=== PATIENT | female | born 1985 ===

== ENCOUNTER 2016-11-08 12:19 | Emergency (ER) | payer MEDICAID ==
[2016-11-08 12:43] VITALS: BMI 34.4
--- NOTE | 2016-11-08 13:12 | C.PDOC ---
History Of Present Illness 30 year old female presents to the ED with complaints of a painful abscess to the right perineal area for three days. Patient denies fever or other complaints at this time. Time Seen by Provider: 11/08/16 12:49 Chief Complaint (Nursing): Abnormal Skin Integrity History Per: Patient History/Exam Limitations: no limitations Onset/Duration Of Symptoms: Days (3 days ) Current Symptoms Are (Timing): Still Present Location Of Injury: Right: Perineum Quality Of Symptoms: Painful, Swollen. denies: Draining Recent travel outside of the [place]: No Past Medical History Reviewed: Historical Data, Nursing Documentation, Vital Signs Vital Signs: Last Vital Signs Temp 98.1 F 11/08/16 13:50 Pulse 85 11/08/16 13:50 Resp 14 11/08/16 13:50 BP 113/69 11/08/16 13:50 Pulse Ox 98 11/08/16 17:20 - Medical History PMH: Asthma Surgical History: (x2) Family History: States: Unknown Family Hx - Social History Hx Alcohol Use: No Hx Substance Use: No - Immunization History Hx Tetanus Toxoid Vaccination: No Hx Influenza Vaccination: No Hx Pneumococcal Vaccination: No Review Of Systems Constitutional: Negative for: Fever, Chills Cardiovascular: Negative for: Chest Pain, Palpitations Respiratory: Negative for: Cough, Shortness of Breath Gastrointestinal: Negative for: Nausea, Vomiting, Abdominal Pain Skin: Positive for: Other (abscess to right perineal area ) Physical Exam - Physical Exam Appears: Non-toxic, No Acute Distress Skin: Warm, Dry, Other (3 cm area of induration and tenderness to right perineal area with no fluctuance ) Head: Atraumatic Eye(s): bilateral: Normal Inspection, EOMI Oral Mucosa: Moist Neck: Supple Chest: Symmetrical, No Deformity Cardiovascular: Rhythm Regular, No Murmur Respiratory: Normal Breath Sounds, No Rhonchi, No Wheezing Gastrointestinal/Abdominal: Soft, No Tenderness, No Distention, No Guarding, No Rebound ED Course And Treatment O2 Sat by Pulse Oximetry: 98 (room air ) Progress Note: Patient was given Keflex and Flagyl. Patient instructed to do sitz baths and return in two days for drainage. Disposition - Disposition Disposition: HOME/ ROUTINE Disposition Time: 13:36 Condition: STABLE Additional Instructions: Follow up with PMD within 1-2 days. Return to ED if feel worse. Warm Sitz baths every 2-3 h, return to Ed in 2 days for re-evaluation and possible abscess drainage. Prescriptions: metroNIDAZOLE [Flagyl] 500 mg PO BID #20 tab Cephalexin [cephalexin] 500 mg PO Q6 #28 cap Ibuprofen [Motrin Tab] 600 mg PO Q8 #30 tab Instructions: Abscess (ED) Forms: [facility] (Serbian) - Clinical Impression Clinical Impression: Perineal abscess - Scribe Statement The provider has reviewed the documentation as recorded by the Scribbraxton Goins All medical record entries made by the Helenibbraxton were at my direction and personally dictated by me. I have reviewed the chart and agree that the record accurately reflects my personal performance of the history, physical exam, medical decision making, and the department course for this patient. I have also personally directed, reviewed, and agree with the discharge instructions and disposition.
[2016-11-08 13:51] VITALS: BP 113/69; PULSE 85; RESP 14; TEMP 98.1
[2016-11-08 13:58] VITALS: O2SAT 98
== END 2016-11-08 13:53 | disposition home or self-care (01) ==
LOC: C.ER 12:19
DX: L02.215 Cutaneous abscess of perineum (principal)

== ENCOUNTER 2018-04-22 17:18 | Emergency (ER) | payer MEDICAID ==
[2018-04-22 17:22] VITALS: BMI 41.0
[2018-04-22 17:30] VITALS: RESP 18
[2018-04-22] MEDS ORDERED: Sodium Chloride 0.9% 1,000 ML IV ONE (17:34)
--- NOTE | 2018-04-22 18:09 | C.PDOC ---
History Of Present Illness 32 year old female presents to ED with complaint of pelvic and lower back pain/cramping and some occasional vaginal spotting since saturday. She is currently approximately 8 weeks , as per LMP (). Patient admits to some nausea currently. She denies vomiting, diarrhea, dysuria, fever, vaginal discharge. Time Seen by Provider: 04/22/18 17:34 Chief Complaint (Nursing): Female Genitourinary History Per: Patient History/Exam Limitations: no limitations Onset/Duration Of Symptoms: Days (3) Current Symptoms Are (Timing): Still Present Location Of Pain/Discomfort: Suprapubic, Other (low back ) Quality Of Discomfort: Cramping Associated Symptoms: Nausea. denies: Fever, Vomiting, Diarrhea, Urinary Symptoms : 5 Para: 3 Miscarriage: 1 Past Medical History Reviewed: Historical Data, Nursing Documentation, Vital Signs Vital Signs: Last Vital Signs Temp 98.4 F 04/22/18 17:22 Pulse 86 04/22/18 17:22 Resp 18 04/22/18 17:22 BP 120/79 04/22/18 17:22 Pulse Ox 100 04/22/18 17:22 - Medical History PMH: Asthma Surgical History: (x2) Family History: States: No Known Family Hx - Social History Hx Alcohol Use: No Hx Substance Use: No - Immunization History Hx Tetanus Toxoid Vaccination: No Hx Influenza Vaccination: Yes (2018) Hx Pneumococcal Vaccination: No Review Of Systems Constitutional: Negative for: Fever, Chills, Weakness Cardiovascular: Negative for: Chest Pain, Palpitations Respiratory: Negative for: Cough, Shortness of Breath Gastrointestinal: Positive for: Nausea. Negative for: Vomiting, Diarrhea Genitourinary: Positive for: Pelvic Pain. Negative for: Dysuria Musculoskeletal: Positive for: Back Pain (lower back) Neurological: Negative for: Weakness, Numbness, Dizziness Physical Exam - Physical Exam Appears: Well, Non-toxic, No Acute Distress Skin: Normal Color, Warm, Dry Oral Mucosa: Moist Neck: Supple Cardiovascular: Rhythm Regular Respiratory: Normal Breath Sounds, No Accessory Muscle Use, No Rales, No Rhonchi, No Wheezing Gastrointestinal/Abdominal: Bowel Sounds, Soft, Tenderness (mild suprapubic tenderness), No Guarding, No Rebound, Other ((-) McBurney's, (-) Fernandes's ) Back: No CVA Tenderness Neurological/Psych: Oriented x3 ED Course And Treatment - Laboratory Results Result Diagrams: 04/22/18 18:02 04/22/18 18:02 O2 Sat by Pulse Oximetry: 100 (RA) Pulse Ox Interpretation: Normal Progress Note: Blood work, UA, transvaginal US ordered and reviewed. Patient given IV NS bolus. Disposition - Disposition Disposition Time: 19:00 Condition: STABLE Forms: [facility] (Wolof) - Clinical Impression Clinical Impression: Pelvic pain affecting - Scribe Statement The provider has reviewed the documentation as recorded by the Scribe (Whit Mckeon) All medical record entries made by the Scribe were at my direction and personally dictated by me. I have reviewed the chart and agree that the record accurately reflects my personal performance of the history, physical exam, medical decision making, and the department course for this patient. I have also personally directed, reviewed, and agree with the discharge instructions and disposition. Physician Patient Turnover Patient Signed Over To: Jemima Clemons Handoff Comments: pending beta quant, transvaginal US
[2018-04-22 18:10] LABS: BASO # 0.1 K/uL (0.0-0.2); BASO % 0.6 % (0.0-2.0); EOS # 0.3 K/uL (0.0-0.7); EOS % 2.9 % (0.0-4.0); HEMOGLOBIN 10.8 g/dL (11.0-16.0); LYMPH % 21.2 % (20.0-40.0); MEAN CELL VOLUME 79.9 fL (81.0-99.0); MEAN CORPUSCULAR HEMOGLOBIN 25.6 pg (27.0-31.0); MEAN CORPUSCULAR HGB CONC 32.1 g/dL (33.0-37.0); MEAN PLATELET VOLUME 8.6 fL (7.2-11.7); MONO # 0.6 K/uL (0.0-0.8); MONO % 6.5 % (0.0-10.0); NEUT # 6.6 K/uL (1.8-7.0); NEUT % 68.8 % (50.0-75.0); NRBC % 0.2 % (0.0-2.0); RBC 4.21 Mil/uL (3.80-5.20); RED CELL DISTRIBUTION WIDTH 17.2 % (11.5-14.5); WHITE BLOOD COUNT 9.7 K/uL (4.8-10.8)
[2018-04-22 18:19] LABS: SQUAMOUS EPITHIAL 4 /hpf (0-5); URINE BILIRUBIN NEGATIVE (NEGATIVE); URINE BLOOD NEGATIVE (NEGATIVE); URINE CLARITY Clear (Clear); URINE COLOR Yellow (YELLOW); URINE GLUCOSE (UA) NORMAL (Normal); URINE LEUKOCYTE ESTERASE NEG Leu/uL (Negative); URINE PROTEIN NEGATIVE (NEGATIVE); URINE UROBILINOGEN NORMAL mg/dL (0.2-1.0)
[2018-04-22 18:32] LABS: ALB/GLOB RATIO 1.3 (1.0-2.1); ALBUMIN 4.1 g/dL (3.5-5.0); ALT/SGPT 12 U/L (9-52); AST/SGOT 23 U/L (14-36); BLOOD UREA NITROGEN 8 mg/dL (7-17); GFR NON-AFRICAN AMERICAN > 60
[2018-04-22 21:13] VITALS: BP 126/78; PULSE 82; TEMP 98.2; O2SAT 99
--- NOTE | 2018-04-23 11:57 | US ---
Date of service: 04/22/2018 Indication: pelvic pain, bleeding, Comparison: 1st trimester ultrasound performed 04/10/15 Technique: Real-time transabdominal pelvic ultrasound was performed. In addition a transvaginal pelvic ultrasound was necessary to better depict pelvic anatomy. Findings: The uterus measures approximately 13.0 x 8.8 x 10.5 cm. Cervix length measures approximately 3.8 cm. There is a single intrauterine fetus present. 4 mm yolk sac. The gestational sac measures 3.5 cm and is compatible with a gestational age of 8 weeks 4 days. The crown-rump length measures 1.6 cm and is compatible with a gestational age of 8 weeks 0 days. 1.0 x 0.8 x 0.7 cm and 3.5 x 5.0 x 4.0 cm subchorionic hemorrhages. There is heart motion which measured 158.8 BPM. The right ovary measures 4.6 x 3.1 x 3.5 cm. 2.0 x 1.9 x 1.4 cm right ovarian cyst. The left ovary measures 9.3 x 6.7 x 10.2. 8.2 x 5.6 x 3.3 cm left ovarian cyst. Blood flow was demonstrated to both ovaries. Impression: Live single intrauterine with estimated gestational age 8 weeks 4 days by gestational sac calculation and 8 weeks 0 days by crown-rump length calculation. heart rate 158.8 bpm. 1.0 x 0.8 x 0.7 cm and 3.5 x 5.0 x 4.0 cm subchorionic hemorrhages. 8.2 x 5.6 x 3.3 cm left and 2.0 x 1.9 x 1.4 cm right ovarian cysts. Recommend attention on follow-up ultrasound. Advise an anomaly screen at 16-18 weeks gestational age Preliminary impression was provided by Ahaali.
== END 2018-04-22 21:24 | disposition home or self-care (01) ==
LOC: C.ER 17:18
DX: O26.891 Other specified pregnancy related conditions, first trimester (principal); O46.91 Antepartum hemorrhage, unspecified, first trimester; Z3A.08 8 weeks gestation of pregnancy; R10.2 Pelvic and perineal pain
CPT/HCPCS: 76805; 76817; 80053; 81001; 84702; 85025; 86850; 86900; 96360; 99285; J7030